=== PATIENT | female | born 1965 | race Two or more races ===

== ENCOUNTER 2022-05-08 08:40 | Emergency (ER) | payer OTHER ==
[~2022-05-08] VITALS: Ht 172.7 cm; Wt 98.0 kg
[2022-05-08] MEDS ORDERED: COZAAR100 MG PO (08:47)
[2022-05-08] MEDS ORDERED: LIPITOR20 MG PO (08:48)
[2022-05-08] MEDS ORDERED: NABUMETONE500 MG PO (08:48)
[2022-05-08] MEDS ORDERED: FLOVENT HFA12 G1 IH (08:49)
[2022-05-08] MEDS ORDERED: PEPCID AC20 MG PO (08:49)
[2022-05-08] MEDS ORDERED: PROAIR HFA8.5 GM IH (08:50)
== END 2022-05-08 15:05 | disposition home or self-care (01) ==
LOC: ER 08:40
DX: M47.27 Other spondylosis with radiculopathy, lumbosacral region (principal)

== ENCOUNTER 2023-04-05 10:39 | Emergency (ER) | payer OTHER ==
[~2023-04-05] VITALS: Ht 172.7 cm; Wt 105.2 kg
[~2023-04-05 10:39] MED LIST: COZAAR100 MG PO; FLOVENT HFA12 G1 IH; LIPITOR20 MG PO; NABUMETONE500 MG PO; PEPCID AC20 MG PO; PROAIR HFA8.5 GM IH
[2023-04-05] MEDS ORDERED: ATIVAN0.5 M1 PO (10:55)
[2023-04-05] MEDS ORDERED: RESTORIL30 M1 PO (10:55)
[2023-04-05] MEDS ORDERED: ZITHROMAX500 MG PO (17:33)
== END 2023-04-05 17:40 | disposition home or self-care (01) ==
LOC: ER 10:39
DX: J45.901 Unspecified asthma with (acute) exacerbation (principal); Z20.822 Contact with and (suspected) exposure to COVID-19

== ENCOUNTER 2023-04-24 17:28 | Emergency (ER) | payer OTHER ==
[~2023-04-24] VITALS: Ht 172.7 cm; Wt 98.9 kg
[~2023-04-24 17:28] MED LIST changes: +ATIVAN0.5 M1 PO; +RESTORIL30 M1 PO; +ZITHROMAX500 MG PO
[2023-04-24] MEDS ORDERED: NABUMETONE500 MG PO (17:47)
== END 2023-04-24 19:51 | disposition home or self-care (01) ==
LOC: ER 17:28
DX: R10.2 Pelvic and perineal pain (principal); N30.80 Other cystitis without hematuria; I10 Essential (primary) hypertension

== ENCOUNTER 2023-04-30 17:52 | Emergency (ER) | payer OTHER ==
[~2023-04-30] VITALS: Ht 167.6 cm; Wt 98.9 kg
[2023-04-30] MEDS ORDERED: COZAAR100 MG (18:35)
[2023-04-30] MEDS ORDERED: RESTORIL30 MG (18:36)
[2023-04-30] MEDS ORDERED: ATIVAN0.5 M1 (18:36)
[2023-04-30] MEDS ORDERED: NABUMETONE500 MG (18:36)
[2023-04-30] MEDS ORDERED: LIPITOR40 M1 (18:36)
== END 2023-04-30 21:53 | disposition home or self-care (01) ==
LOC: ER 17:52
DX: J06.9 Acute upper respiratory infection, unspecified (principal); Z20.822 Contact with and (suspected) exposure to COVID-19

== ENCOUNTER 2023-09-27 14:08 | Emergency (ER) | payer OTHER ==
[~2023-09-27] VITALS: Ht 172.7 cm; Wt 103.0 kg
[~2023-09-27 14:08] MED LIST changes: +ATIVAN0.5 M1; +COZAAR100 MG; +LIPITOR40 M1; +NABUMETONE500 MG; +RESTORIL30 MG
== END 2023-09-27 19:29 | disposition home or self-care (01) ==
LOC: ER 14:08
DX: M16.0 Bilateral primary osteoarthritis of hip (principal); M25.551 Pain in right hip; M25.552 Pain in left hip; I10 Essential (primary) hypertension

== ENCOUNTER 2023-12-16 21:06 | Emergency (ER) | payer OTHER ==
[~2023-12-16] VITALS: Ht 172.7 cm; Wt 103.9 kg
[2023-12-17 01:15] LABS: HEMATOCRIT 42.5 % (36.0-45.00); HEMOGLOBIN 14.5 g/dL (12.0-15.00); MEAN CELL VOLUME 89.8 fL (80.00-100.00); MEAN CORPUSCULAR HEMOGLOBIN 30.5 pg (27.00-32.0); PLATELET COUNT 335 K/uL (150-450); RED BLOOD COUNT 4.73 M/uL (4.00-6.00); RED CELL DISTRIBUTION WIDTH 12.8 % (11.5-14.5)
[2023-12-17 01:16] LABS: URINE APPEARANCE Turbid; URINE BILIRRUBIN Negative (NEGATIVE); URINE BLOOD Negative; URINE COLOR Yellow; URINE GLUCOSE Negative (NEGATIVE); URINE LEUKOCYTE Large; URINE NITRATE Negative; URINE PROTEIN Negative (NEGATIVE)
[2023-12-17 01:17] LABS: URINE EPITHELIAL CELLS 119.2 uL (0.0-38.8); URINE WBC 631.6 uL (0.0-23.2)
[2023-12-17 01:27] LABS: URINE BACTERIA > 9821.5 uL (0.0-1933)
[2023-12-17 01:34] LABS: CALCIUM 9.7 mg/dL (8.5-10.1); CREATININE SERUM 0.87 mg/dL (0.55-1.02); GFR 67.11; POTASSIUM 4.28 mEq/L (3.5-5.1)
[2023-12-17] MEDS ORDERED: ANTIVERT25 M2 PO (04:35)
[2023-12-17] MEDS ORDERED: ONDANSETRON ODT4 MG PO (04:35)
[2023-12-17] MEDS ORDERED: CIPRO500 MG PO (04:35)
== END 2023-12-17 04:47 ==
LOC: ER 21:07
PROVIDERS: General Practice
DX: R42 Dizziness and giddiness (principal); N39.0 Urinary tract infection, site not specified
CPT/HCPCS: 36415; 70450; 96365; 96372; 99283; J0696; J3490

== ENCOUNTER 2024-01-06 19:55 | Inpatient (IN) | payer OTHER ==
[~2024-01-06] VITALS: Ht 243.8 cm; Wt 103.9 kg
[~2024-01-06 19:55] MED LIST changes: +ANTIVERT25 M2 PO; +CIPRO500 MG PO; +ONDANSETRON ODT4 MG PO
[2024-01-06] MEDS ORDERED: 0.9 % SODIUM CHLORIDE 1,000 ML IV SCH ×2 (20:15→22:45)
[2024-01-06] MEDS ORDERED: CEFTRIAXONE SODIUM 1,000 MG VIAL IV ONE (20:15)
--- NOTE | 2024-01-06 20:27 | NUR ---
PTE ALERTA Y ORIENTADA X3, SE LE JIL S/V. PTE REFIERE QUE TIENE DIFICULTAD RESPIRATORIA Y TOS PRODUCTIVA. SE UBICA EN AREA DE OBSERVACION.
[2024-01-06 20:58] LABS: ABG PH 7.482 (7.35-7.45); ABG PO2 72.7 mmHg (80-100); ABG pCO2 25.5 mmHg (35-45); BICARBONATE 18.6 mmol/l (23-25); SaO2 95.5 %; Tco2 19.4 mmol/l; allen test SATISFACTORY; o2 21 %; puncture site RADIAL RIGHT
--- NOTE | 2024-01-06 21:09 | NUR ---
SE EDUCA PACIENTE SOBRE EL TX MEDICO Y ESTA REFIER EENTENDER. SE CANALIZA Y SE ADMINITRAN MEDICAMENTOS CINDY ORDEN MEDICA. SE JIL MUESTRAS DE LABORATORIO Y SE ENVIAN.
--- NOTE | 2024-01-06 21:10 | NUR ---
GASES NOTIFICADOS A PERSONAL DE TERAPIA RESPIRATORIA. PENDIENTE A PLACA
[2024-01-06 21:20] LABS: HEMATOCRIT 39.4 % (36.0-45.00); HEMOGLOBIN 13.6 g/dL (12.0-15.00); MEAN CELL VOLUME 86.9 fL (80.00-100.00); MEAN CORPUSCULAR HEMOGLOBIN 30.1 pg (27.00-32.0); MEAN CORPUSCULAR HGB CONC 34.6 g/dl (32.0-36.0); PLATELET COUNT 398 K/uL (150-450); RED BLOOD COUNT 4.53 M/uL (4.00-6.00); RED CELL DISTRIBUTION WIDTH 12.9 % (11.5-14.5)
[2024-01-06 21:36] LABS: CALCIUM 9.6 mg/dL (8.5-10.1); CREATININE SERUM 0.98 mg/dL (0.55-1.02); GFR 58.49; POTASSIUM 3.05 mEq/L (3.5-5.1)
[2024-01-06] MEDS ORDERED: LEVALBUTEROL HCL 0.63 MG/3 ML SOLUTION IH SCH (22:45)
[2024-01-06] MEDS ORDERED: IPRATROPIUM BROMIDE 0.5 MG/2.5 ML AMPUL.NEB IH SCH (22:46)
[2024-01-07 07:14] LABS: HEMATOCRIT 37.2 % (36.0-45.00); HEMOGLOBIN 12.8 g/dL (12.0-15.00); MEAN CELL VOLUME 87.2 fL (80.00-100.00); MEAN CORPUSCULAR HGB CONC 34.4 g/dl (32.0-36.0); PLATELET COUNT 388 K/uL (150-450); RED BLOOD COUNT 4.27 M/uL (4.00-6.00)
[2024-01-07 07:32] LABS: CALCIUM 9.6 mg/dL (8.5-10.1); CREATININE SERUM 0.66 mg/dL (0.55-1.02); GFR 92.31; POTASSIUM 4.05 mEq/L (3.5-5.1)
[2024-01-07] MEDS ORDERED: FAMOTIDINE/PF 20 MG in 0.9 % SODIUM CHLORIDE 8 ML IV PUSH SCH (09:00)
[2024-01-07] MEDS ORDERED: AZITHROMYCIN 500 MG in DEXTROSE 5 % IN WATER 250 ML IV SCH (09:00)
[2024-01-07] MEDS ORDERED: METHYLPREDNISOLONE SOD SUCC 40 MG VIAL IV SCH (09:00)
[2024-01-07] MEDS ORDERED: CEFTRIAXONE SODIUM 2,000 MG in DEXTROSE 5 % IN WATER 100 ML IV SCH (09:00)
[2024-01-07] MEDS ORDERED: BUDESONIDE 0.5 MG/2 ML AMPUL.NEB IH SCH (09:00)
[2024-01-07] MEDS ORDERED: ENOXAPARIN SODIUM 40 MG/0.4 ML SYRINGE SUBCUTANEO SCH (09:00)
[2024-01-07] MEDS ORDERED: GUAIFENESIN/DEXTROMETHORPHAN 100 MG/5 ML ML PO SCH (12:00)
[2024-01-08 07:22] LABS: HEMATOCRIT 37.3 % (36.0-45.00); HEMOGLOBIN 12.6 g/dL (12.0-15.00); MEAN CORPUSCULAR HEMOGLOBIN 30.5 pg (27.00-32.0); MEAN CORPUSCULAR HGB CONC 33.9 g/dl (32.0-36.0); PLATELET COUNT 382 K/uL (150-450); RED BLOOD COUNT 4.14 M/uL (4.00-6.00); RED CELL DISTRIBUTION WIDTH 13.2 % (11.5-14.5)
[2024-01-08 07:40] LABS: ALBUMIN 3.4 gm/dL (3.4-5.0); BILIRUBIN TOTAL 0.43 mg/dL (0.3-1.2); CALCIUM 9.2 mg/dL (8.5-10.1); CREATININE SERUM 0.74 mg/dL (0.55-1.02); GFR 80.89; GLOBULINA 3.3 G/DL (2.4-3.5); MAGNESIUM 2.4 mg/dL (1.8-2.4); PHOSPHOROUS 3.4 mg/dL (2.5-4.9); POTASSIUM 4.35 mEq/L (3.5-5.1); TOTAL PROTEIN 6.7 gm/dL (6.4-8.2)
[2024-01-08 07:45] LABS: C-REACTIVE PROTEIN 0.33 MG/DL (0.00-0.29)
[2024-01-08 10:22] LABS: URINE APPEARANCE Clear; URINE BILIRRUBIN Negative (NEGATIVE); URINE BLOOD Negative; URINE COLOR Yellow; URINE GLUCOSE Negative (NEGATIVE); URINE LEUKOCYTE Trace; URINE NITRATE Negative; URINE PROTEIN Negative (NEGATIVE); URINE UROBILINOGEN 0.2 E.U./dl
[2024-01-08] MEDS ORDERED: BENZONATATE 200 MG CAPSULE PO SCH (10:23)
[2024-01-08 10:26] LABS: URINE BACTERIA 125.9 uL (0.0-1933); URINE EPITHELIAL CELLS 14.8 uL (0.0-38.8); URINE RBC 2.7 uL (0.0-20.8); URINE WBC 12.6 uL (0.0-23.2)
[2024-01-08] MEDS ORDERED: HEPARIN SODIUM,PORCINE 500 UNITS/5 ML VIAL IV ONE (20:05)
[2024-01-09] MEDS ORDERED: KETOROLAC TROMETHAMINE 30 MG VIAL IV PRN (00:15)
[2024-01-09] MEDS ORDERED: FAMOtidine 20 MG TABLET PO SCH (21:00)
[2024-01-10] MEDS ORDERED: HYDROCODONE/CHLORPHEN P-STIREX 5 ML ML PO SCH (13:17)
[2024-01-10] MEDS ORDERED: AMLODIPINE BESYLATE 5 MG TABLET PO SCH (13:17)
[2024-01-10] MEDS ORDERED: SODIUM CHLORIDE 0.45 % 1,000 ML IV SCH (13:30)
[2024-01-10] MEDS ORDERED: CEFEPIME HCL 1,000 MG VIAL IV SCH (17:00)
[2024-01-10] MEDS ORDERED: METHYLPREDNISOLONE SOD SUCC 40 MG VIAL IV SCH (18:00)
[2024-01-11 11:31] LABS: ABG PH 7.401 (7.35-7.45); ABG PO2 65.4 mmHg (80-100); ABG pCO2 37.4 mmHg (35-45)
[2024-01-11 11:32] LABS: BASE EXCESS -1.6 mmol/l; BICARBONATE 22.7 mmol/l (23-25); SaO2 92.5 %; Tco2 23.8 mmol/l; allen test SATISFACTORY; o2 21 %; puncture site RADIAL LEFT
[2024-01-11 15:29] LABS: HEMATOCRIT 41.5 % (36.0-45.00); HEMOGLOBIN 13.9 g/dL (12.0-15.00); MEAN CELL VOLUME 88.9 fL (80.00-100.00); MEAN CORPUSCULAR HEMOGLOBIN 29.9 pg (27.00-32.0); MEAN CORPUSCULAR HGB CONC 33.6 g/dl (32.0-36.0); PLATELET COUNT 405 K/uL (150-450); RED BLOOD COUNT 4.67 M/uL (4.00-6.00); RED CELL DISTRIBUTION WIDTH 13.2 % (11.5-14.5)
[2024-01-11 15:48] LABS: ALBUMIN 3.6 gm/dL (3.4-5.0); BILIRUBIN TOTAL 0.67 mg/dL (0.3-1.2); CALCIUM 9.9 mg/dL (8.5-10.1); CREATININE SERUM 0.76 mg/dL (0.55-1.02); GFR 78.44; GLOBULINA 3.2 G/DL (2.4-3.5); POTASSIUM 4.15 mEq/L (3.5-5.1); TOTAL PROTEIN 6.8 gm/dL (6.4-8.2)
[2024-01-11] MEDS ORDERED: METHYLPREDNISOLONE SOD SUCC 40 MG VIAL IV SCH (17:00)
[2024-01-12] MEDS ORDERED: LEVALBUTEROL HCL 1.25 MG/3 ML SOLUTION IH SCH (13:00)
[2024-01-12] MEDS ORDERED: FLUCONAZOLE IN NACL,ISO-OSM 400 MG/200 ML PIGGYBAG IV ONE ×2 (14:30→17:45)
[2024-01-12] MEDS ORDERED: METHYLPREDNISOLONE SOD SUCC 125 MG VIAL IV SCH (17:00)
[2024-01-13 06:15] LABS: HEMATOCRIT 39.3 % (36.0-45.00); HEMOGLOBIN 13.3 g/dL (12.0-15.00); MEAN CELL VOLUME 91.3 fL (80.00-100.00); MEAN CORPUSCULAR HEMOGLOBIN 30.9 pg (27.00-32.0); MEAN CORPUSCULAR HGB CONC 33.8 g/dl (32.0-36.0); PLATELET COUNT 391 K/uL (150-450); RED BLOOD COUNT 4.31 M/uL (4.00-6.00); RED CELL DISTRIBUTION WIDTH 13.2 % (11.5-14.5)
[2024-01-13 07:01] LABS: ALBUMIN 3.2 gm/dL (3.4-5.0); ALKALINE PHOSPHATASE 72 U/L (50-136); ALT/SGPT 47 U/L (12-78); ANION GAP 8 (10.0-20.0); AST/SGOT 14 U/L (15-37); BILIRUBIN TOTAL 0.62 mg/dL (0.3-1.2); BLOOD UREA NITROGEN 18 mg/dL (7-18); BUN CREA RATIO 25 (7.0-25.0); CALCIUM 9.4 mg/dL (8.5-10.1); CARBON DIOXIDE 28 mEq/L (21-32); CHLORIDE 111 mmol/L (98-107); CREATININE SERUM 0.72 mg/dL (0.55-1.02); GFR 83.49; GLOBULINA 3.1 G/DL (2.4-3.5); GLUCOSE FASTING 146 mg/dL (65-100); LDH 193 U/L (84-246); OSMOLALITY SERUM 288 MOSM/KG (275-295); PHOSPHOROUS 3.6 mg/dL (2.5-4.9); POTASSIUM 4.67 mEq/L (3.5-5.1); SODIUM 142 mmol/L (136-145); TOTAL PROTEIN 6.3 gm/dL (6.4-8.2)
[2024-01-13 07:05] LABS: C-REACTIVE PROTEIN < 0.29 MG/DL (0.00-0.29)
[2024-01-13] MEDS ORDERED: FLUCONAZOLE IN NACL,ISO-OSM 200 MG/100 ML PIGGYBAG IV SCH (12:00)
[2024-01-13] MEDS ORDERED: METHYLPREDNISOLONE SOD SUCC 125 MG VIAL IV SCH (21:00)
[2024-01-14] MEDS ORDERED: CARBOPROST TROMETHAMINE 250 MCG/ML AMPUL IM ONE (19:40)
[2024-01-15] MEDS ORDERED: IPRATROPIUM BROMIDE 0.5 MG/2.5 ML AMPUL.NEB IH SCH
[2024-01-15 06:57] LABS: HEMATOCRIT 41.8 % (36.0-45.00); MEAN CORPUSCULAR HEMOGLOBIN 29.8 pg (27.00-32.0); MEAN CORPUSCULAR HGB CONC 33.5 g/dl (32.0-36.0); PLATELET COUNT 374 K/uL (150-450); RED BLOOD COUNT 4.69 M/uL (4.00-6.00); RED CELL DISTRIBUTION WIDTH 13.6 % (11.5-14.5)
[2024-01-15 07:15] LABS: ALBUMIN 3.3 gm/dL (3.4-5.0); BILIRUBIN TOTAL 1.02 mg/dL (0.3-1.2); CALCIUM 9.5 mg/dL (8.5-10.1); CREATININE SERUM 0.74 mg/dL (0.55-1.02); GFR 80.89; MAGNESIUM 2.5 mg/dL (1.8-2.4); PHOSPHOROUS 3.7 mg/dL (2.5-4.9); POTASSIUM 4.32 mEq/L (3.5-5.1); TOTAL PROTEIN 6.3 gm/dL (6.4-8.2)
[2024-01-15] MEDS ORDERED: THEOPHYLLINE ANHYDROUS 300 MG CAP.SR.24H PO SCH (09:00)
[2024-01-16] MEDS ORDERED: METHYLPREDNISOLONE SOD SUCC 40 MG VIAL IV SCH (09:00)
[2024-01-17] MEDS ORDERED: METHYLPREDNISOLONE SOD SUCC 40 MG VIAL IV SCH (21:00)
== END 2024-01-17 12:54 | disposition home or self-care (01) | DRG 194 ==
LOC: ER 19:55 → MEDJ 22:49
PROVIDERS: Emergency Medicine; Internal Medicine; Internal Medicine Infectious Disease; ADMIT Internal Medicine; ATTEND Internal Medicine
PROC: BW24ZZZ Computerized Tomography (CT Scan) of Chest and Abdomen (ICD-10-PCS; principal; 2024-01-07)
DX: J18.9 Pneumonia, unspecified organism (principal); J45.901 Unspecified asthma with (acute) exacerbation; J98.11 Atelectasis; D72.829 Elevated white blood cell count, unspecified; J22 Unspecified acute lower respiratory infection; B37.9 Candidiasis, unspecified

== ENCOUNTER 2024-01-18 19:24 | Emergency (ER) | payer OTHER ==
[~2024-01-18] VITALS: Ht 172.7 cm; Wt 59.0 kg
[2024-01-18] MEDS ORDERED: METHYLPREDNISOLONE SOD SUCC 125 MG VIAL IV ONE (21:00)
[2024-01-18] MEDS ORDERED: IPRATROPIUM BROMIDE 0.5 MG/2.5 ML AMPUL.NEB IH SCH (21:00)
[2024-01-18] MEDS ORDERED: LEVALBUTEROL HCL 1.25 MG/3 ML SOLUTION IH SCH (21:00)
[2024-01-18 21:13] LABS: ABG PH 7.481 (7.35-7.45); ABG PO2 87.3 mmHg (80-100); ABG pCO2 32.1 mmHg (35-45); BASE EXCESS 0.7 mmol/l; BICARBONATE 23.4 mmol/l (23-25); SaO2 97.4 %; Tco2 24.3 mmol/l; allen test SATISFACTORY; o2 21 %; puncture site RADIAL LEFT
[2024-01-18 21:14] LABS: HEMATOCRIT 44.7 % (36.0-45.00); HEMOGLOBIN 15.6 g/dL (12.0-15.00); MEAN CELL VOLUME 89.4 fL (80.00-100.00); MEAN CORPUSCULAR HEMOGLOBIN 31.1 pg (27.00-32.0); MEAN CORPUSCULAR HGB CONC 34.8 g/dl (32.0-36.0); PLATELET COUNT 294 K/uL (150-450); RED CELL DISTRIBUTION WIDTH 13.6 % (11.5-14.5)
== END 2024-01-18 22:22 | disposition home or self-care (01) ==
LOC: ER 19:24
PROVIDERS: General Practice
DX: J18.9 Pneumonia, unspecified organism (principal); J45.909 Unspecified asthma, uncomplicated; I10 Essential (primary) hypertension

== ENCOUNTER 2024-03-04 19:18 | Emergency (ER) | payer OTHER ==
[~2024-03-04] VITALS: Ht 172.7 cm; Wt 113.4 kg
[2024-03-04] MEDS ORDERED: METOCLOPRAMIDE HCL 5 MG/ML VIAL IV ONE (20:45)
[2024-03-04] MEDS ORDERED: FAMOTIDINE/PF 20 MG/2 ML VIAL IV ONE (20:45)
[2024-03-04] MEDS ORDERED: 0.9 % SODIUM CHLORIDE 500 ML IV ONE (20:45)
[2024-03-04] MEDS ORDERED: KETOROLAC TROMETHAMINE 30 MG VIAL IV ONE (20:45)
[2024-03-04 21:07] LABS: HEMOGLOBIN 13.6 g/dL (12.0-15.00); MEAN CELL VOLUME 87.6 fL (80.00-100.00); MEAN CORPUSCULAR HEMOGLOBIN 29.8 pg (27.00-32.0); MEAN CORPUSCULAR HGB CONC 34.1 g/dl (32.0-36.0); PLATELET COUNT 270 K/uL (150-450); RED BLOOD COUNT 4.57 M/uL (4.00-6.00); RED CELL DISTRIBUTION WIDTH 14.1 % (11.5-14.5)
[2024-03-04 21:32] LABS: ALBUMIN 3.6 gm/dL (3.4-5.0); BILIRUBIN TOTAL 0.98 mg/dL (0.3-1.2); CALCIUM 9.3 mg/dL (8.5-10.1); CREATININE SERUM 0.9 mg/dL (0.55-1.02); GFR 64.54; GLOBULINA 2.9 G/DL (2.4-3.5); POTASSIUM 4.11 mEq/L (3.5-5.1); TOTAL PROTEIN 6.5 gm/dL (6.4-8.2)
[2024-03-04 21:39] LABS: PH,URINE 5.5 (5.0-8.0); URINE APPEARANCE Turbid; URINE BILIRRUBIN Negative (NEGATIVE); URINE BLOOD Negative; URINE COLOR Yellow; URINE GLUCOSE Negative (NEGATIVE); URINE LEUKOCYTE Large; URINE NITRATE Negative; URINE PROTEIN Negative (NEGATIVE)
[2024-03-04 21:42] LABS: URINE WBC 687.8 uL (0.0-23.2)
[2024-03-04 22:03] LABS: URINE BACTERIA > 9821.5 uL (0.0-1933); URINE CRYSTALS FEW /HPF; URINE EPITHELIAL CELLS > 201.7 uL (0.0-38.8); URINE RBC 1.2 uL (0.0-20.8)
[2024-03-04] MEDS ORDERED: PRILOSEC OTC20 MG PO (22:48)
[2024-03-04] MEDS ORDERED: BACTRIM DS TAB1 EACH PO (22:48)
== END 2024-03-04 23:21 ==
LOC: ER 19:18
PROVIDERS: Nurse Practitioner Family
DX: N39.0 Urinary tract infection, site not specified (principal); E11.9 Type 2 diabetes mellitus without complications; Z79.84 Long term (current) use of oral hypoglycemic drugs; I10 Essential (primary) hypertension; Z87.09 Personal history of other diseases of the respiratory system

== ENCOUNTER 2024-09-17 22:20 | Emergency (ER) | payer OTHER ==
[~2024-09-17] VITALS: Ht 165.1 cm; Wt 103.9 kg
[~2024-09-17 22:20] MED LIST changes: +BACTRIM DS TAB1 EACH PO; +PRILOSEC OTC20 MG PO
[2024-09-17] MEDS ORDERED: IPRATROPIUM/ALBUTEROL SULFATE 3 ML AMPUL.NEB IH SCH (23:00)
[2024-09-17] MEDS ORDERED: MAGNESIUM SULFATE 10,000 MG/20 ML VIAL IV ONE (23:00)
[2024-09-17] MEDS ORDERED: GUAIFENESIN/DEXTROMETHORPHAN 10ML BLIST.PACK PO ONE (23:00)
[2024-09-17] MEDS ORDERED: METHYLPREDNISOLONE SOD SUCC 125 MG VIAL IV ONE (23:00)
[2024-09-17] MEDS ORDERED: AZITHROMYCIN 500 MG VIAL IV ONE (23:00)
[2024-09-17 23:42] LABS: HEMATOCRIT 42.8 % (36.0-45.00); HEMOGLOBIN 14.5 g/dL (12.0-15.00); MEAN CELL VOLUME 88.5 fL (80.00-100.00); MEAN CORPUSCULAR HEMOGLOBIN 29.9 pg (27.00-32.0); MEAN CORPUSCULAR HGB CONC 33.9 g/dl (32.0-36.0); PLATELET COUNT 327 K/uL (150-450); RED BLOOD COUNT 4.84 M/uL (4.00-6.00); RED CELL DISTRIBUTION WIDTH 13.2 % (11.5-14.5)
[2024-09-17 23:50] LABS: ABG PH 7.423 (7.35-7.45); ABG PO2 79.1 mmHg (80-100)
[2024-09-17 23:51] LABS: BASE EXCESS -1.4 mmol/l; BICARBONATE 22.3 mmol/l (23-25); SaO2 95.8 %; Tco2 23.4 mmol/l; allen test SATISFACTORY; o2 21 %; puncture site RADIAL RIGHT
[2024-09-18 00:16] LABS: ALBUMIN 3.9 gm/dL (3.4-5.0); BILIRUBIN TOTAL 0.69 mg/dL (0.3-1.2); CALCIUM 9.7 mg/dL (8.5-10.1); CREATININE SERUM 1.11 mg/dL (0.55-1.02); GFR 50.66; GLOBULINA 3.5 G/DL (2.4-3.5); POTASSIUM 3.79 mEq/L (3.5-5.1); TOTAL PROTEIN 7.4 gm/dL (6.4-8.2)
== END 2024-09-18 01:20 | disposition home or self-care (01) ==
LOC: ER 22:22
PROVIDERS: General Practice
DX: J45.909 Unspecified asthma, uncomplicated (principal); Z20.822 Contact with and (suspected) exposure to COVID-19; I10 Essential (primary) hypertension

== ENCOUNTER 2024-12-01 11:00 | Emergency (ER) | payer OTHER ==
[~2024-12-01] VITALS: Ht 172.7 cm; Wt 104.3 kg
[2024-12-01] MEDS ORDERED: BUDESONIDE 0.5 MG/2 ML AMPUL.NEB IH STA (12:10)
[2024-12-01] MEDS ORDERED: IPRATROPIUM BROMIDE 0.5 MG/2.5 ML AMPUL.NEB IH STA (12:11)
[2024-12-01] MEDS ORDERED: METHYLPREDNISOLONE SOD SUCC 125 MG VIAL IV STA (12:12)
[2024-12-01] MEDS ORDERED: MAGNESIUM SULFATE IN WATER 4 GM/100 ML PIGGYBACK IV STA (12:12)
[2024-12-01] MEDS ORDERED: HYDROCODONE/CHLORPHEN P-STIREX 5 ML ML PO STA (12:13)
[2024-12-01] MEDS ORDERED: LEVALBUTEROL HCL 1.25 MG/3 ML SOLUTION IH SCH (12:15)
[2024-12-01] MEDS ORDERED: LEVALBUTEROL HCL 1.25 MG/3 ML SOLUTION IH ONE (12:25)
[2024-12-01] MEDS ORDERED: IPRATROPIUM BROMIDE 0.5 MG/2.5 ML AMPUL.NEB IH ONE (12:25)
[2024-12-01] MEDS ORDERED: BUDESONIDE 0.5 MG/2 ML AMPUL.NEB IH ONE (12:25)
[2024-12-01] MEDS ORDERED: METHYLPREDNISOLONE SOD SUCC 125 MG VIAL ONE (12:29)
[2024-12-01 13:08] LABS: HEMOGLOBIN 15.3 g/dL (12.0-15.00); MEAN CELL VOLUME 87.4 fL (80.00-100.00); MEAN CORPUSCULAR HEMOGLOBIN 29.7 pg (27.00-32.0); MEAN CORPUSCULAR HGB CONC 33.9 g/dl (32.0-36.0); PLATELET COUNT 298 K/uL (150-450); RED BLOOD COUNT 5.15 M/uL (4.00-6.00); RED CELL DISTRIBUTION WIDTH 13.1 % (11.5-14.5)
[2024-12-01 13:24] LABS: CALCIUM 9.9 mg/dL (8.5-10.1); CREATININE SERUM 0.82 mg/dL (0.55-1.02); GFR 71.85; POTASSIUM 3.86 mEq/L (3.5-5.1)
== END 2024-12-01 16:02 | disposition expired ==
LOC: ER 11:03
PROVIDERS: General Practice
DX: J45.901 Unspecified asthma with (acute) exacerbation (principal); I10 Essential (primary) hypertension

== ENCOUNTER 2025-01-12 15:04 | Emergency (ER) | payer OTHER ==
[~2025-01-12] VITALS: Ht 152.4 cm; Wt 101.6 kg
[2025-01-12] MEDS ORDERED: KETOROLAC TROMETHAMINE 60 MG VIAL IM STA (18:29)
[2025-01-12] MEDS ORDERED: ORPHENADRINE CITRATE 30 MG/ML AMPUL IM STA (18:29)
[2025-01-12] MEDS ORDERED: DEXAMETHASONE SODIUM PHOSPHATE 4 MG/ML VIAL IM STA (18:30)
[2025-01-12] MEDS ORDERED: ACETAMINOPHEN WITH CODEINE 1 UDTAB TABLET PO STA (18:30)
[2025-01-12] MEDS ORDERED: KETOROLAC TROMETHAMINE 60 MG VIAL IM ONE (18:41)
[2025-01-12] MEDS ORDERED: DEXAMETHASONE SODIUM PHOSPHATE 4 MG/ML VIAL ONE (18:42)
[2025-01-12] MEDS ORDERED: ORPHENADRINE CITRATE 30 MG/ML AMPUL ONE (18:42)
== END 2025-01-12 18:56 | disposition home or self-care (01) ==
LOC: ER 15:06
DX: M54.50 Low back pain, unspecified (principal)
CPT/HCPCS: 96372; 99282; J1100; J1885; J2360

== ENCOUNTER 2025-06-08 08:55 | Emergency (ER) | payer OTHER ==
[~2025-06-08] VITALS: Ht 172.7 cm; Wt 103.0 kg
[2025-06-08] MEDS ORDERED: KETOROLAC TROMETHAMINE 10 MG TABLET PO ONE (09:45)
[2025-06-08 10:07] LABS: BASO % 1.2 % (0.1-1.2); EOS # 0.18 (0.04-0.54); EOS % 2.2 % (0.7-7.0); LYMPH # 2.20 (1.18-3.74); LYMPH % 26.9 % (19.3-53.1); MEAN PLATELET VOLUME 10.20 fl (9.4-12.4); MONO # 0.63 (0.24-0.82); MONO % 7.7 % (4.7-12.5); NEUT # 5.05 (1.56-6.13); NEUT % 61.9 % (34.0-71.1); RED CELL DISTRIBUTION WIDTH 12.2 % (11.6-14.4)
[2025-06-08 10:27] LABS: ALT/SGPT 23.0 U/L (12-78); AST/SGOT 16.0 U/L (15-37); BILIRUBIN TOTAL 0.74 mg/dL (0.3-1.2); BUN CREA RATIO 9.0 (7.0-25.0); CREATININE SERUM 0.87 mg/dL (0.55-1.02); GFR 66.87; GLOBULINA 3.5 G/DL (2.4-3.5); GLUCOSE FASTING 105.0 mg/dL (65-100); OSMOLALITY SERUM 284.0 MOSM/KG (275-295)
[2025-06-08] MEDS ORDERED: SINGULAIR10 MG PO (11:01)
[2025-06-08] MEDS ORDERED: LEVALBUTER0.63 MG/3 IH (11:01)
[2025-06-08] MEDS ORDERED: MEDROLPACK PO (11:01)
[2025-06-08] MEDS ORDERED: BENZONATATE200 M1 PO (11:01)
[2025-06-08] MEDS ORDERED: AMOX1TAB5 PO (11:01)
[2025-06-08] MEDS ORDERED: PEPCID AC20 MG PO (11:01)
[2025-06-08 11:07] VITALS: BP 128/87; O2SAT 98
== END 2025-06-08 11:08 | disposition home or self-care (01) ==
LOC: ER 09:02
PROVIDERS: General Practice
DX: J18.9 Pneumonia, unspecified organism (principal); E11.9 Type 2 diabetes mellitus without complications; Z79.84 Long term (current) use of oral hypoglycemic drugs; I10 Essential (primary) hypertension; Z87.09 Personal history of other diseases of the respiratory system

== ENCOUNTER 2025-08-04 09:15 | Emergency (ER) | payer OTHER ==
[~2025-08-04] VITALS: Ht 172.7 cm; Wt 90.7 kg
[~2025-08-04 09:15] MED LIST changes: +AMOX1TAB5 PO; +BENZONATATE200 M1 PO; +LEVALBUTER0.63 MG/3 IH; +MEDROLPACK PO; +SINGULAIR10 MG PO
[2025-08-04] MEDS ORDERED: COZAAR25 MG PO (09:35)
[2025-08-04 10:12] LABS: BASO % 0.8 % (0.1-1.2); EOS # 0.21 (0.04-0.54); EOS % 1.6 % (0.7-7.0); LYMPH # 2.00 (1.18-3.74); LYMPH % 15.6 % (19.3-53.1); MEAN PLATELET VOLUME 9.60 fl (9.4-12.4); MONO # 1.00 (0.24-0.82); MONO % 7.8 % (4.7-12.5); NEUT # 9.45 (1.56-6.13); NEUT % 74.0 % (34.0-71.1); RED CELL DISTRIBUTION WIDTH 12.4 % (11.6-14.4)
[2025-08-04 10:54] LABS: BUN CREA RATIO 16.0 (7.0-25.0); CREATININE SERUM 0.77 mg/dL (0.55-1.02); GFR 76.99; GLUCOSE FASTING 99.0 mg/dL (65-100); OSMOLALITY SERUM 287.0 MOSM/KG (275-295)
[2025-08-04 12:15] LABS: URINE APPEARANCE Turbid; URINE BILIRRUBIN Negative (NEGATIVE); URINE BLOOD Large; URINE COLOR Dark Yellow; URINE GLUCOSE Negative (NEGATIVE); URINE KETONE Negative (NEGATIVE); URINE LEUKOCYTE Moderate; URINE NITRATE Negative; URINE UROBILINOGEN 1.0 E.U./dl
[2025-08-04 12:20] LABS: URINE BACTERIA 369.6 uL (0.0-1933); URINE EPITHELIAL CELLS 11.5 uL (0.0-38.8); URINE WBC 3079.0 uL (0.0-23.2)
[2025-08-04 12:24] LABS: URINE CAST 0.00 uL (0.0-1.40); URINE PROTEIN 100 (NEGATIVE); URINE RBC > 10558.9 uL (0.0-20.8)
[2025-08-04] MEDS ORDERED: levoFLOXacin IN DEXTROSE 5 % 500MG/100ML PIGGYBAG IV ONE ×2 (13:00→13:20)
== END 2025-08-04 14:21 | disposition home or self-care (01) ==
LOC: ER 09:17
PROVIDERS: Emergency Medicine
DX: R31.9 Hematuria, unspecified (principal); N39.0 Urinary tract infection, site not specified; K80.20 Calculus of gallbladder without cholecystitis without obstruction; I10 Essential (primary) hypertension

== ENCOUNTER 2025-10-26 14:10 | Emergency (ER) | payer OTHER ==
[~2025-10-26] VITALS: Ht 172.7 cm; Wt 104.3 kg
[~2025-10-26 14:10] MED LIST changes: +COZAAR25 MG PO
[2025-10-26 15:52] VITALS: BP 169/100; O2SAT 94
[2025-10-26] MEDS ORDERED: 0.9 % SODIUM CHLORIDE 1,000 ML IV STA (16:14)
[2025-10-26] MEDS ORDERED: METHYLPREDNISOLONE SOD SUCC 125 MG VIAL IV ONE (16:15)
[2025-10-26] MEDS ORDERED: LEVALBUTEROL HCL 1.25 MG/3 ML SOLUTION IH ONE (16:15)
[2025-10-26] MEDS ORDERED: IPRATROPIUM BROMIDE 0.5 MG/2.5 ML AMPUL.NEB IH SCH (16:15)
[2025-10-26] MEDS ORDERED: CEFTRIAXONE SODIUM 1,000 MG VIAL ONE (16:21)
[2025-10-26] MEDS ORDERED: METHYLPREDNISOLONE SOD SUCC 125 MG VIAL ONE (16:21)
[2025-10-26] MEDS ORDERED: CEFTRIAXONE SODIUM 1,000 MG VIAL IV ONE (16:30)
[2025-10-26 16:44] LABS: BASO % 0.7 % (0.1-1.2); EOS # 0.21 (0.04-0.54); EOS % 2.4 % (0.7-7.0); LYMPH # 2.67 (1.18-3.74); LYMPH % 30.4 % (19.3-53.1); MEAN PLATELET VOLUME 9.40 fl (9.4-12.4); MONO # 0.78 (0.24-0.82); MONO % 8.9 % (4.7-12.5); NEUT # 5.03 (1.56-6.13); NEUT % 57.3 % (34.0-71.1); RED CELL DISTRIBUTION WIDTH 11.9 % (11.6-14.4)
[2025-10-26] MEDS ORDERED: LEVALBUTEROL HCL 0.63 MG/3 ML SOLUTION IH ONE (16:59)
[2025-10-26] MEDS ORDERED: IPRATROPIUM BROMIDE 0.5 MG/2.5 ML AMPUL.NEB IH ONE (16:59)
[2025-10-26 17:04] LABS: BUN CREA RATIO 12.0 (7.0-25.0); CREATININE SERUM 0.85 mg/dL (0.55-1.02); GFR 68.69; GLUCOSE FASTING 109.0 mg/dL (65-100); OSMOLALITY SERUM 285.0 MOSM/KG (275-295)
[2025-10-26 17:10] LABS: ERYTHROCYTE SEDIMENTATION RATE 7 mm/hr (0-30)
[2025-10-26 17:15] LABS: COVID-19 AG NEGATIVE (NEGATIVE)
[2025-10-26] MEDS ORDERED: IPRATROPIU0.2 MG/1 M IH (18:52)
[2025-10-26] MEDS ORDERED: MEDROLPACK PO (18:52)
[2025-10-26] MEDS ORDERED: AZITHROMYCIN500 MG PO (18:52)
[2025-10-26] MEDS ORDERED: BENZONATATE200 M1 PO (18:52)
[2025-10-26] MEDS ORDERED: ALBUTEROL1.25 MG/3 IH (18:52)
== END 2025-10-26 19:11 | disposition home or self-care (01) ==
LOC: ER 14:10
PROVIDERS: General Practice
DX: J45.51 Severe persistent asthma with (acute) exacerbation (principal); Z20.822 Contact with and (suspected) exposure to COVID-19; I10 Essential (primary) hypertension; E03.9 Hypothyroidism, unspecified

== ENCOUNTER → 2025-11-22 | Emergency (ER) | payer OTHER ==
[~2025-11-22] VITALS: Ht 172.7 cm; Wt 104.3 kg
[~2025-11-22] MED LIST changes: +0.9 % SODIUM CHLORIDE 1,000 ML IV STA; +ALBUTEROL1.25 MG/3 IH; +AZITHROMYCIN500 MG PO; +FAMOTIDINE/PF 20 MG/2 ML VIAL IV STA; +IPRATROPIU0.2 MG/1 M IH; +OMEPRAZOLE20 M1 PO; +ONDANSETRON HCL 2 MG/ML VIAL IV STA
[2025-11-22 06:06] LABS: BASO % 0.7 % (0.1-1.2); EOS # 0.12 (0.04-0.54); EOS % 0.8 % (0.7-7.0); LYMPH # 1.73 (1.18-3.74); LYMPH % 11.4 % (19.3-53.1); MEAN PLATELET VOLUME 10.90 fl (9.4-12.4); MONO # 0.62 (0.24-0.82); MONO % 4.1 % (4.7-12.5); NEUT # 12.55 (1.56-6.13); NEUT % 82.5 % (34.0-71.1); RED CELL DISTRIBUTION WIDTH 12.1 % (11.6-14.4)
[2025-11-22 06:29] LABS: INR 0.94
[2025-11-22 08:01] LABS: BASO % 0.6 % (0.1-1.2); EOS # 0.01 (0.04-0.54); EOS % 0.1 % (0.7-7.0); LYMPH # 1.06 (1.18-3.74); LYMPH % 7.1 % (19.3-53.1); MEAN PLATELET VOLUME 11.20 fl (9.4-12.4); MONO # 0.57 (0.24-0.82); MONO % 3.8 % (4.7-12.5); NEUT # 13.06 (1.56-6.13); NEUT % 87.8 % (34.0-71.1); RED CELL DISTRIBUTION WIDTH 12.3 % (11.6-14.4)
[2025-11-22 08:42] LABS: ALT/SGPT 32.0 U/L (12-78); AST/SGOT 19.0 U/L (15-37); BILIRUBIN TOTAL 0.81 mg/dL (0.3-1.2); BUN CREA RATIO 16.0 (7.0-25.0); CREATININE SERUM 0.82 mg/dL (0.55-1.02); GFR 71.6; GLOBULINA 3.1 G/DL (2.4-3.5); GLUCOSE FASTING 133.0 mg/dL (65-100); OSMOLALITY SERUM 296.0 MOSM/KG (275-295)
== END | disposition home or self-care (01) ==
LOC: ER 03:40
PROVIDERS: Physician Assistant Medical
DX: K52.89 Other specified noninfective gastroenteritis and colitis (principal); B34.8 Other viral infections of unspecified site; I10 Essential (primary) hypertension; Z87.09 Personal history of other diseases of the respiratory system